=== PATIENT | female | born 1975 | race Caucasian/White ===

== ENCOUNTER 2019-04-10 08:24 | Day surgery (SDC) | payer OTHER ==
[2019-04-10] MEDS ORDERED: NEOSTIGMINE 3 MG/3 ML SYRINGE (11:25)
[2019-04-10] MEDS ORDERED: CEFAZOLIN 1 GM INJ (11:25)
[2019-04-10] MEDS ORDERED: PROPOFOL 20 ML (11:25)
[2019-04-10] MEDS ORDERED: ROCURONIUM 50 MG INJ (11:25)
[2019-04-10] MEDS ORDERED: MIDAZOLAM 1 MG/ML 2 ML INJ (11:25)
[2019-04-10] MEDS ORDERED: GLYCOPYRROLATE 0.4 MG INJ (11:25)
[2019-04-10] MEDS ORDERED: FENTAnyl 50 MCG/ML VIAL ×2 (11:26→12:47)
[2019-04-10] MEDS ORDERED: ONDANSETRON 4 MG INJ (11:26)
[2019-04-10] MEDS: EPINEPHrine 1 MG/ML 30 ML INJ IRR (11:56)
[2019-04-10] MEDS ORDERED: MIDAZOLAM 1 MG/ML 2 ML INJ IV (12:00)
[2019-04-10] MEDS ORDERED: METOCLOPRAMIDE 10 MG INJ IV (12:00)
[2019-04-10] MEDS ORDERED: KETOROLAC 30 MG INJ IV (12:00)
[2019-04-10] MEDS ORDERED: hydrALAzine 20 MG INJ IV (12:00)
[2019-04-10] MEDS ORDERED: LABETALOL HCL 20MG INJ IV (12:00)
[2019-04-10] MEDS ORDERED: EPHEDrine 25 MG/5 ML SYG IV (12:00)
[2019-04-10] MEDS ORDERED: OXYCODONE/ACETAMINOPHEN (5/325) TAB PO (12:00)
[2019-04-10] MEDS ORDERED: DEXAMETHASONE 4 MG/ML 5 ML INJ (12:07)
[2019-04-10] MEDS: morphine SULFATE/PF (10 MG/10 ML) INJ (12:54)
[2019-04-10] MEDS: MEPERIDINE 25 MG INJ IV (13:25)
[2019-04-10] MEDS ORDERED: HYDROCODONE/APAP (5/325) TAB PO (13:30)
[2019-04-10] MEDS: HYDROmorphONE 1 MG/5 ML IV SYRINGE IV (13:56)
[2019-04-10] MEDS: ONDANSETRON 4 MG INJ IV (16:22)
== END 2019-04-10 16:50 | disposition home or self-care (01) ==
LOC: SDS 08:24
DX: M23.241 Derangement of anterior horn of lateral meniscus due to old tear or injury, right knee (principal); M23.221 Derangement of posterior horn of medial meniscus due to old tear or injury, right knee; M65.9 Synovitis and tenosynovitis, unspecified; M22.41 Chondromalacia patellae, right knee; I10 Essential (primary) hypertension; Z82.49 Family history of ischemic heart disease and other diseases of the circulatory system
CPT/HCPCS: 27333; 71045; 84703